=== PATIENT | female | born 1995 | race Two or more races ===

== ENCOUNTER 2022-05-25 19:53 | Emergency (ER) | payer MEDICAID, OTHER ==
[~2022-05-25] VITALS: Ht 160 cm; Wt 69.0 kg
[2022-05-25 20:10] VITALS: BP 124/57
== END 2022-05-26 01:00 | disposition home or self-care (01) ==
LOC: ER 19:53
DX: O98.511 Other viral diseases complicating pregnancy, first trimester (principal); Z20.822 Contact with and (suspected) exposure to COVID-19; J98.8 Other specified respiratory disorders; Z3A.13 13 weeks gestation of pregnancy
CPT/HCPCS: 71045; 87426; 87804; 99284; C9803; Z7610